=== PATIENT | female | born 1995 | race Two or more races ===

== ENCOUNTER 2017-09-25 13:28 | Inpatient (IN) | payer BC ==
[~2017-09-25] VITALS: Ht 162.6 cm; Wt 98.8 kg
[2017-09-25] VITALS (16 sets, daily range): BP systolic 111–156; BP diastolic 66–104
[~2017-09-25 13:28] MED LIST: ACETAMINOPHEN500 MG PO
[2017-09-25 15:09] LABS: BASOPHIL COUNT 0.1 K/uL (0-0.1); EOSINOPHIL (%) 0.8 % (0-5); EOSINOPHIL COUNT 0.1 K/uL (0-0.3); HEMATOCRIT 31.7 % (36.0-46.0); IMMATURE GRANULOCYTE (%) 0.4 % (0.0-0.7); IMMATURE GRANULOCYTE COUNT 0.1 K/uL; INSTRUMENT ABS NEUTROPHIL CT 8.6 K/uL; LYMPHOCYTE COUNT 1.8 K/uL (1.0-2.8); MCH 25.5 PG (29.0-34.0); MCHC 32.5 G/DL (30.0-36.0); MCV 78.5 FL (83-99); MEAN PLAT.VOLUME 9.4 uM^3 (9.5-12.4); MONOCYTE (%) 6.1 % (3-12); MONOCYTE COUNT 0.7 K/uL (0-0.8); NEUTROPHIL (%) 76.3 % (45-76); NEUTROPHIL COUNT 8.6 K/uL (1.8-6.4); PLATELET COUNT 307 K/uL (156-360); RBC DIS.WIDTH-CV 13.7 % (11.8-14.6); RBC DIS.WIDTH-SD 39.3 % (39-53); RED BLOOD COUNT 4.04 M/uL (3.80-5.20); WHITE BLOOD COUNT 11.2 K/uL (4.1-10.2)
[2017-09-26] VITALS (12 sets, daily range): BP systolic 109–145; BP diastolic 63–93
[2017-09-27 07:27] LABS: EOSINOPHIL (%) 1.9 % (0-5); EOSINOPHIL COUNT 0.2 K/uL (0-0.3); HEMATOCRIT 24.6 % (36.0-46.0); IMMATURE GRANULOCYTE (%) 0.4 % (0.0-0.7); IMMATURE GRANULOCYTE COUNT 0.1 K/uL; INSTRUMENT ABS NEUTROPHIL CT 8.7 K/uL; MCH 25.7 PG (29.0-34.0); MCHC 32.1 G/DL (30.0-36.0); MCV 80.1 FL (83-99); MEAN PLAT.VOLUME 9.8 uM^3 (9.5-12.4); MONOCYTE (%) 6.9 % (3-12); MONOCYTE COUNT 0.8 K/uL (0-0.8); NEUTROPHIL (%) 73.5 % (45-76); NEUTROPHIL COUNT 8.7 K/uL (1.8-6.4); PLATELET COUNT 246 K/uL (156-360); RBC DIS.WIDTH-CV 14.2 % (11.8-14.6); RBC DIS.WIDTH-SD 41.2 % (39-53); WHITE BLOOD COUNT 11.9 K/uL (4.1-10.2)
[2017-09-27 07:28] LABS: RED BLOOD COUNT 3.07 M/uL (3.80-5.20)
[2017-09-28 07:20] VITALS: BP 102/62
[2017-09-28] MEDS ORDERED: IBUPROFEN800 MG PO (08:29)
[2017-09-28] MEDS ORDERED: CHROMAGEN,1 CAPSULE PO (08:29)
[2017-09-28 12:41] VITALS: BP 123/84
[2017-09-28 13:40] VITALS: BP 128/80
[2017-09-28 14:34] VITALS: BP 123/86
[2017-09-28 14:38] VITALS: BP 126/84
[2017-09-28 15:01] LABS: POINT-OF-CARE METER ID UU13113801; POINT-OF-CARE USER ID 607291304
== END 2017-09-28 17:19 | disposition home or self-care (01) | DRG 775 ==
LOC: LDRP-OP → 2WEST 13:29 → LDRP-OP 10-27 10:23
PROVIDERS: Advanced Practice Midwife; Obstetrics & Gynecology
DX: O70.1 Second degree perineal laceration during delivery (principal); O99.02 Anemia complicating childbirth; D62 Acute posthemorrhagic anemia; O99.214 Obesity complicating childbirth; E66.9 Obesity, unspecified; Z68.32 Body mass index [BMI] 32.0-32.9, adult; Z3A.39 39 weeks gestation of pregnancy; Z37.0 Single live birth
CPT/HCPCS: 82948; 85025; C1755; G0378; J2405; J3010; J7120

== ENCOUNTER → 2017-12-01 | Outpatient (CLI) | payer BC ==
[~2017-12-01] MED LIST changes: +CHROMAGEN,1 CAPSULE PO; +IBUPROFEN800 MG PO
== END | disposition home or self-care (01) ==
LOC: NUC 10:19
DX: K80.10 Calculus of gallbladder with chronic cholecystitis without obstruction (principal)
CPT/HCPCS: 78227; A9537; J2805

== ENCOUNTER 2018-03-03 08:03 | Emergency (ER) | payer BC ==
[~2018-03-03] VITALS: Ht 162.6 cm; Wt 88.0 kg
[2018-03-03 08:57] LABS: HEMATOCRIT 37.3 % (36.0-46.0); HEMOGLOBIN 12.3 G/DL (11.9-15.5); MCH 25.2 PG (29.0-34.0); MCV 76.3 FL (83-99); PLATELET COUNT 323 K/uL (156-360); RBC DIS.WIDTH-CV 16.4 % (11.8-14.6); RBC DIS.WIDTH-SD 45.4 % (39-53); RED BLOOD COUNT 4.89 M/uL (3.80-5.20); WHITE BLOOD COUNT 9.8 K/uL (4.1-10.2)
[2018-03-03 09:10] LABS: ALBUMIN 4.3 g/dL (3.2-4.8); CHLORIDE 105 mEq/L (99-109); POTASSIUM 4.3 mEq/L (3.7-5.4); SODIUM 140 mEq/L (136-147)
[2018-03-03 09:13] LABS: GLUCOSE 108 mg/dL (70-99); TOTAL PROTEIN 7.8 g/dL (6.4-8.3)
[2018-03-03 09:14] LABS: TOTAL BILIRUBIN 0.6 mg/dL (0.0-1.0)
[2018-03-03 09:16] LABS: ALKALINE PHOSPHATASE 118 IU/L (3-129); CREATININE 0.8 mg/dL (0.6-1.3); GFR ESTIMATE (CALCULATED) > 59 mL/min/
[2018-03-03 09:17] LABS: UREA NITROGEN (BUN) 17 mg/dL (9-23)
[2018-03-03 09:18] LABS: AST (GOT) 333 IU/L (2-34)
[2018-03-03 09:19] LABS: ALT (GPT) 147 IU/L (3-49)
[2018-03-03 09:20] LABS: LIPASE 39 U/L (1.0-51.0)
[2018-03-03 09:26] LABS: QUANTITATIVE HCG < 4.0 MIU/ML
[2018-03-03] MEDS ORDERED: ZOFRAN ODT4 MG PO (10:38)
[2018-03-03] MEDS ORDERED: NORCO 5/3251 TABLET PO (10:38)
[2018-03-03 10:41] LABS: APPEARANCE CLEAR ((CLEAR)); BILIRUBIN NEGATIVE; BLOOD NEGATIVE; COLOR YELLOW ((YELLOW)); GLUCOSE (STRIP) NEGATIVE; KETONES NEGATIVE; LEUKOCYTES NEGATIVE; NITRITE NEGATIVE; PROTEIN (STRIP) 30; SPECIFIC GRAVITY 1.027 (1.000-1.030); UCUL ADDED? NO; UROBILINOGEN 0.2 MG/DL (0.2-1.0)
[2018-03-03 11:37] VITALS: BP 98/62
[2018-03-08] MEDS ORDERED: OMEPRAZOLE20 M2 PO (13:22)
[2018-03-08] MEDS ORDERED: ZOLOFT25 MG PO (13:23)
[2018-03-08] MEDS ORDERED: PRENATAL TABLE1 EAC3 PO (13:23)
== END 2018-03-03 11:38 | disposition home or self-care (01) ==
LOC: EME 08:03
DX: K80.20 Calculus of gallbladder without cholecystitis without obstruction (principal); R74.0 Nonspecific elevation of levels of transaminase and lactic acid dehydrogenase [LDH]; K76.0 Fatty (change of) liver, not elsewhere classified; F41.0 Panic disorder [episodic paroxysmal anxiety]
CPT/HCPCS: 76705; 80053; 81003; 83690; 84702; 85027; 99281; 99284

== ENCOUNTER 2018-03-09 12:06 | Day surgery (SDC) | payer BC ==
[~2018-03-09] VITALS: Ht 162.6 cm; Wt 86.6 kg
[~2018-03-09 12:06] MED LIST changes: +NORCO 5/3251 TABLET PO; +OMEPRAZOLE20 M2 PO; +PRENATAL TABLE1 EAC3 PO; +ZOFRAN ODT4 MG PO; +ZOLOFT25 MG PO
[2018-03-09 12:37] VITALS: BP 109/66
[2018-03-09] MEDS ORDERED: COLACE100 MG PO (13:39)
[2018-03-09] MEDS ORDERED: ONDANSETRON HCL8 MG PO (13:39)
[2018-03-09] MEDS ORDERED: DILAUDID4 MG PO (13:39)
[2018-03-09 17:30] VITALS: BP 133/86
[2018-03-09 17:54] VITALS: BP 122/74
[2018-03-09 18:28] VITALS: BP 121/73
[2018-03-09 19:40] VITALS: BP 120/78
== END 2018-03-09 19:55 | disposition home or self-care (01) ==
LOC: SDC 12:06
PROC: 0FT44ZZ Resection of Gallbladder, Percutaneous Endoscopic Approach (ICD-10-PCS; principal; 2018-03-09)
DX: K80.10 Calculus of gallbladder with chronic cholecystitis without obstruction (principal); E66.9 Obesity, unspecified; Z68.32 Body mass index [BMI] 32.0-32.9, adult; F53 Mental and behavioral disorders associated with the puerperium, not elsewhere classified; Z87.891 Personal history of nicotine dependence; Z82.5 Family history of asthma and other chronic lower respiratory diseases; Z82.49 Family history of ischemic heart disease and other diseases of the circulatory system; Z80.6 Family history of leukemia
CPT/HCPCS: 88304; J0131; J0690; J1100; J1170; J2250; J2405; J2710; J3010; J7643; Q0175